=== PATIENT | female | born 2000 | race Asian ===

== ENCOUNTER 2024-08-06 21:58 | Emergency (ER) | payer MEDICAID ==
[~2024-08-06] VITALS: Ht 160 cm; Wt 110.2 kg
[2024-08-06] MEDS ORDERED: AMOX-CLAV 875-1 EACH PO (22:29)
[2024-08-06] MEDS ORDERED: Amoxicillin/Clavulanate Pota 875 MG TAB PO ONE (22:30)
== END 2024-08-06 22:54 | disposition home or self-care (01) ==
LOC: ED 21:58
DX: N61.1 Abscess of the breast and nipple (principal); K04.7 Periapical abscess without sinus; R31.9 Hematuria, unspecified; F41.9 Anxiety disorder, unspecified; F84.0 Autistic disorder; Z88.5 Allergy status to narcotic agent; Z88.8 Allergy status to other drugs, medicaments and biological substances; Z90.49 Acquired absence of other specified parts of digestive tract; Z98.890 Other specified postprocedural states